=== PATIENT | female | born 1965 | race Caucasian/White ===

== ENCOUNTER 2020-08-26 17:01 | Outpatient (RCR) | payer OTHER, SELFPAY ==
--- NOTE | 2020-10-07 10:47 | PTOPEVAL ---
Thank you for referring Elysia Pope to [facility].? The patient is scheduled to be seen for therapy? ____x/week for ___ weeks. Please review, sign, date and return this plan of care OLIVER. I agree with and certify that the following plan of care is medically necessary. Referring Physician Date Admitting Provider: Attending Provider: Glynn Cullen MD Referring Provider: *PT Outpatient Evaluation Start: 08/26/20 17:06 Freq: Status: Active Protocol: Document 08/26/20 17:00 Lainey (Rec: 09/02/20 20:38 [facility] JONNATHAN-[id number]) Therapy Assessment Status Assessment Status Assessment Status Evaluation Outpatient Past Medical History Neurological History Hx Migraine Yes Cardiovascular History Hx Irregular Heartbeat Yes: PALPITATIONS/ ?SVT Respiratory History Hx Respiratory Disorders No Significant History Gastrointestinal History Hx Irritable Bowel Yes Genitourinary History Hx Genitourinary Disorders No Significant History Hematological History Hx Hematological Disorders No Significant History Endocrine History Hx Endocrine Disorders No Significant History HEENT History Hx HEENT Disorders No Significant History Integumentary History Hx Skin Disorders No Significant History Reproductive History Hx Reproductive Disorders No Significant History Psychosocial History Hx Psychiatric Disorders No Significant History Pain History Effective Methods of Pain Control PT TAKES IBUPROFEN FOR PETAR DANLOS SYNDROME Anesthesia History Hx Anesthesia Reactions No Significant History Evaluation Information Problem Diagnosis lumbar radiculopathy Onset 06/24/20 Additional Evaluation Detail oswestry = 54% Subjective Information patient reports she has been Query Text:As Reported By Patient/ having pain in the lower back Family and L hip/front of L thigh from about 7 weeks. she reports the pain has been about the same throughout this time. she reports no injury. she reports youth career specialist has not been helping. she reports symptoms are worse at night and radiate from the back to the L hip, down the front of the L thigh, and to the L knee. she reports no x- rays. she is on anti- inflamatory meds and was prescribed mm relaxors but is not taking. she reports she is
== END 2020-10-21 14:52 | disposition home or self-care (01) ==
LOC: CHSPT 17:01
PROVIDERS: PCP Internal Medicine; Visit Provider Internal Medicine
DX: M54.16 Radiculopathy, lumbar region (principal)
CPT/HCPCS: 97012; 97014; 97110; 97140; 97161; G0283

== ENCOUNTER 2020-10-07 02:28 | Outpatient (CLI) | payer OTHER, SELFPAY ==
[2020-10-07 22:41] LABS: SARS-CoV-2 RNA PCR Negative
== END 2020-10-07 02:29 | disposition home or self-care (01) ==
LOC: ANHCOVIDDT 02:29
PROVIDERS: PCP Internal Medicine; Visit Provider Internal Medicine Gastroenterology
DX: Z01.812 Encounter for preprocedural laboratory examination (principal); Z20.828 Contact with and (suspected) exposure to other viral communicable diseases
CPT/HCPCS: 87635; C9803; U0003

== ENCOUNTER 2020-10-10 00:35 | Day surgery (SDC) | payer OTHER, SELFPAY ==
[2020-10-03 15:33] VITALS: BMI 24.9
[2020-10-10 06:20] VITALS: BP 128/79; PULSE 103; RESP 16; TEMP 36.8; O2SAT 100; BMI 25.2
[2020-10-10] MEDS: LACTATED RINGERS 1,000 ML 150 ML IV CONT (06:32)
--- NOTE | 2020-10-10 07:00 | WPDANESEPPF ---
Anes - Initial Pre Proc Eval Procedure: Operation Date: 10/10/20 07:30 Proposed Procedures p Screening Colonoscopy - Shahram Bailey MD Date/Time: 10/10/20 07:00 Surgeon: Shahram Bailey MD Pre Op Diagnosis: Neoplasm Screening Patient Data Age: 55 Gender: F Height: 5 ft 6 in Weight: 70.9 kg Last Vital Signs Temp 36.8 C 10/10/20 06:20 Pulse 103 H 10/10/20 06:20 Resp 16 10/10/20 06:20 BP 128/79 10/10/20 06:20 Pulse Ox 100 10/10/20 06:20 Allergies Allergy/AdvReac Type Severity Reaction Status Date / Time metoclopramide [From Reglan] Allergy Severe Agitated Verified 10/10/20 06:19 diphenhydramine Allergy Intermediate Palpitation Verified 10/10/20 06:19 [From Benadryl] s erythromycin base Allergy Intermediate Rash Verified 10/10/20 06:19 iohexol Allergy Intermediate Rash Verified 10/10/20 06:19 [From CONTRAST - CT, XRAY] Sulfa (Sulfonamide Allergy Intermediate RASH Verified 10/10/20 06:19 Antibiotics) amoxicillin Allergy Mild Unknown Unverified 10/10/20 06:19 Home Medications Medication Instructions Recorded Confirmed Type fluticasone propionate [Flonase 1 spray INTRANASAL BID 08/27/19 10/10/20 History Allergy Relief] medroxyprogesterone 2.5 mg PO DAILY 08/31/19 10/10/20 History rizatriptan 10 mg PO PRN PRN 08/31/19 10/03/20 History acetaminophen [Acetaminophen Extra 1,000 mg PO DAILY PRN 10/03/20 10/10/20 History Strength] celecoxib 100 mg PO DAILY PRN 10/03/20 10/10/20 History cyclobenzaprine 10 mg PO HS PRN 10/03/20 10/10/20 History estradiol 0.5 mg PO DAILY 10/03/20 10/10/20 History ipratropium bromide 2 spray INTRANASAL TID PRN 10/03/20 10/03/20 History omeprazole 20 mg PO DAILY PRN 10/03/20 10/10/20 History Patient hx anesthesia problems: none Family hx anesthesia problems: none PMFSH Past Medical History Medical History Kerwin-Danlos syndrome IBS (irritable bowel syndrome) Irregular heart beat possible history of SVT Migraine Family History Family History Grandparent Family history of coronary artery disease, Onset Age: 88 Mother Family history of malignant neoplasm of breast in first degree relative, Onset Age: 73 Other Family history of malignant melanoma Family history of malignant neoplasm of breast Family history of malignant neoplasm of male breast Social History Social History Smoking packs per day: 1 Smoking cigarettes per day: 20.0 Years smoked: 10 Smoking pack-years: 10.00 Smoking status: Former smoker Tobacco type: cigarettes Smoking end date: 10/24/93 Alcohol intake: current Substance use: never Substance use type: does not use Living arrangements: with family Gender identity (if verbalized by the patient): Female Spiritual care concerns: No Anes - Eval Final PreProcedure Day of Procedure 10/10/20 07:00 Patient weight: normal Heart: regular rate and rhythm Lungs: clear to auscultation Airway: Mallampati scale class II Neurological: alert and oriented Last oral intake: >/= 8 hours ASA classification: III Emergent: no Anesthetic plan: proceed Anesthesia type and monitoring: general GIVS and standard monitoring Informed Consent: The patient's anesthetic plan and its attendant risks and benefits were discussed with the patient/family/POA. Questions were solicited and answers provided to the satisfaction of the patient/family/POA.
--- NOTE | 2020-10-10 07:25 | WPDGICN ---
Assessment and Plan Assessment and plan (1) Encounter for screening colonoscopy: Code(s): Z12.11 - Encounter for screening for malignant neoplasm of colon Status: Acute Assessment and Plan: Patient appears to be at average risk for colon polyps. Plan is for screening colonoscopy today. (2) Kerwin-Danlos syndrome: Code(s): Q79.60 - Kerwin-Danlos syndrome, unspecified Status: Acute GI Consult Note Consult date/time: 10/10/20 07:25 HPI: Elysia Pope is a 55 year old female Presents for screening colonoscopy. Her last exam was more than 10 years ago. Patient states that her current weight appetite bowel movements are normal. She denies abdominal pain. She has had no bleeding. Family history is noncontributory. [facility] Past Medical History Medical History (Updated 10/10/20 @ 07:26 by Shahram Bailey MD) Kerwin-Danlos syndrome IBS (irritable bowel syndrome) Irregular heart beat possible history of SVT Migraine Family History Family History Grandparent Family history of coronary artery disease, Onset Age: 88 Mother Family history of malignant neoplasm of breast in first degree relative, Onset Age: 73 Other Family history of malignant melanoma Family history of malignant neoplasm of breast Family history of malignant neoplasm of male breast Social History Social History Smoking packs per day: 1 Smoking cigarettes per day: 20.0 Years smoked: 10 Smoking pack-years: 10.00 Smoking status: Former smoker Tobacco type: cigarettes Smoking end date: 10/24/93 Alcohol intake: current Substance use: never Substance use type: does not use Living arrangements: with family Gender identity (if verbalized by the patient): Female Spiritual care concerns: No Meds Home Medications and Allergies Home Medications Medication Instructions Recorded Confirmed Type fluticasone propionate [Flonase 1 spray INTRANASAL BID 08/27/19 10/10/20 History Allergy Relief] medroxyprogesterone 2.5 mg PO DAILY 08/31/19 10/10/20 History rizatriptan 10 mg PO PRN PRN 08/31/19 10/03/20 History acetaminophen [Acetaminophen Extra 1,000 mg PO DAILY PRN 10/03/20 10/10/20 History Strength] celecoxib 100 mg PO DAILY PRN 10/03/20 10/10/20 History cyclobenzaprine 10 mg PO HS PRN 10/03/20 10/10/20 History estradiol 0.5 mg PO DAILY 10/03/20 10/10/20 History ipratropium bromide 2 spray INTRANASAL TID PRN 10/03/20 10/03/20 History omeprazole 20 mg PO DAILY PRN 10/03/20 10/10/20 History Allergies Allergy/AdvReac Type Severity Reaction Status Date / Time metoclopramide [From Reglan] Allergy Severe Agitated Verified 10/10/20 06:19 diphenhydramine Allergy Intermediate Palpitation Verified 10/10/20 06:19 [From Benadryl] s erythromycin base Allergy Intermediate Rash Verified 10/10/20 06:19 iohexol Allergy Intermediate Rash Verified 10/10/20 06:19 [From CONTRAST - CT, XRAY] Sulfa (Sulfonamide Allergy Intermediate RASH Verified 10/10/20 06:19 Antibiotics) amoxicillin Allergy Mild Unknown Unverified 10/10/20 06:19 Vital Signs Vital Signs - 24 hr 10/10/20 06:20 Temperature 98.3 F Pulse Rate 103 H Respiratory Rate 16 Blood Pressure 128/79 Pulse Oximetry 100 Exam Narrative: Exam Narrative: Physical exam reveals patient to be alert. Vital signs stable. HEENT exam unremarkable. Lungs are clear to auscultation and percussion. Heart is without murmur or extra sounds. Abdominal exam bowel sounds are present soft nontender with no hepatosplenomegaly. Digital external rectal exam is normal.
[2020-10-10 07:44] VITALS: BP 110/68; PULSE 89; RESP 23; O2SAT 100
[2020-10-10 07:54] VITALS: BP 118/78; PULSE 96; RESP 20; O2SAT 100
[2020-10-10 08:04] VITALS: BP 123/83; PULSE 80; RESP 16; O2SAT 100
== END 2020-10-10 08:30 | disposition home or self-care (01) ==
PROVIDERS: PCP Internal Medicine; Visit Provider Internal Medicine Gastroenterology
PROC: 0DJD8ZZ Inspection of Lower Intestinal Tract, Via Natural or Artificial Opening Endoscopic (ICD-10-PCS; CPT 45378; principal; 2020-10-10 07:30)
DX: Z12.11 Encounter for screening for malignant neoplasm of colon (principal); Q79.60 Ehlers-Danlos syndrome, unspecified; K58.9 Irritable bowel syndrome, unspecified; Z87.891 Personal history of nicotine dependence
CPT/HCPCS: 45378; J2704; J7120

== ENCOUNTER 2021-05-20 08:14 | Outpatient (CLI) | payer OTHER, SELFPAY ==
--- NOTE | ~2021-05-20 | MM_ITS ---
EXAMINATION: MM screening liane BI w joseph HISTORY: Screening mammogram TECHNIQUE: Craniocaudal and mediolateral oblique 3-D tomosynthesis images were obtained and synthetic 2-D images were generated. CAD analysis was submitted and interpreted. COMPARISON: 11/19/2019, 08/03/2018, 04/29/2017 bilateral digital screening mammogram examinations BREAST PARENCHYMAL COMPOSITION: There are scattered areas of fibroglandular density. . FINDINGS: Bilateral breast masses are noted, including up to 8 mm irregular mass (craniocaudal Tomosy nthesis image 41/84, MLO Tomosynthesis image 36/91) is noted in the posterior mid to upper outer left breast, additional smaller left breast masses, 5 mm posterior outer mid right breast irregular mass (MLO Tomosynthesis image 21/83). Bilateral diagnostic mammography and breast ultrasound examination are recommended. IMPRESSION: 1. Bilateral breast masses 2. Bilateral diagnostic mammography and breast ultrasound examination are recommended BI-RADS Category 0: Incomplete: Needs additional imaging evaluation. Reviewed, dictated and finalized at location A. IMPRESSION: 1. Bilateral breast masses 2. Bilateral diagnostic mammography and breast ultrasound examination are recom mended BI-RADS Category 0: Incomplete: Needs additional imaging evaluation.
== END 2021-05-20 08:15 | disposition home or self-care (01) ==
LOC: ANHIMG 08:17
PROVIDERS: PCP Internal Medicine; Visit Provider Nurse Practitioner
DX: Z12.31 Encounter for screening mammogram for malignant neoplasm of breast (principal); R92.8 Other abnormal and inconclusive findings on diagnostic imaging of breast
CPT/HCPCS: 77063; 77067

== ENCOUNTER 2021-07-09 13:22 | Outpatient (CLI) | payer OTHER, SELFPAY ==
--- NOTE | ~2021-07-09 | MMUS_ITS ---
EXAMINATION: MM diagnostic liane BI w joseph, US breast BI limited HISTORY: Follow-up breast asymmetries TECHNIQUE: Additional 3-D tomosynthesis images of the breasts were performed and synthetic 2-D images were generated. CAD analysis was submitted and interpreted. High resolution bilateral limited breast ultrasound was performed. COMPARISON: Comparison to multiple prior studies sequentially, with oldest reviewed study dated 02/11. BREAST PARENCHYMAL COMPOSITION: Breast composed of scattered areas of fibroglandular density. FINDINGS: MAMMOGRAPHIC FINDINGS: There is a focal mass in the upper outer quadrant of the left breast posteriorly with central lucency and slightly lobulated margins, most likely benign intramammary lymph node. No significant change co mpared with prior studies allowing for differences in. Focal asymmetry noted on the cc view on 016 No mammographic evidence for malignancy in the right breast. ULTRASOUND.: Limited bilateral breast ultrasound: Normal heterogeneous echotexture is identified bilaterally witho ut discrete mass. IMPRESSION: 1. Probable benign left breast mass, upper outer quadrant. No sonographic correlate. No evidence for malignancy in the right breast. 2. Recommend 6 month follow-up diagnostic left mammogram BI-RADS category 3, probably benign findings. Reviewed, dictated and finalized at location A. IMPRESSION: 1. Probable benign left breast mass, upper outer quadrant. No sonographic corre late. No evidence for malignancy in the right breast. 2. Recommend 6 month follow-up diagnostic left mammogram BI-RADS category 3, probably benign findings.
== END 2021-07-09 13:23 | disposition home or self-care (01) ==
PROVIDERS: PCP Internal Medicine; Visit Provider Obstetrics & Gynecology Gynecology
DX: N63.21 Unspecified lump in the left breast, upper outer quadrant (principal)
CPT/HCPCS: 76642; 77062; 77066; G0279

== ENCOUNTER → 2022-09-02 07:43 | Outpatient (CLI) | payer OTHER, SELFPAY ==
--- NOTE | ~2022-09-02 | US_ITS ---
EXAMINATION: US breast RT complete, US breast LT limited DATE: 09/02/2022 09:11 INDICATION: Probable benign left breast mass reported on 07/09/2021 bilateral diagnostic mammogram and Limited bilateral breast ultrasound examination TECHNIQUE: Real-time and color flow imaging of the complete right breast and upper outer and lower-ou ter quadrants of the left breast COMPARISON: 07/09/2021 bilateral diagnostic mammogram FINDINGS: RIGHT: 12:00 1 cm from nipple: Parallel circumscribed 1.7 x 3.2 3.4 mm hypoechoic lesion without suspicious shadowing, likely benign 7:00 6 cm from nipple: 5 x 5 x 5 x 6.4 mm sonolucency with through transmission and posterior enhance ment, likely a cyst LEFT: 3:00 8 cm from nipple: Circumscribed 4.5 x 4.1 x 5.2 mm hypoechoic lesion with fatty hilus, likely a small benign intramammary lymph node.. IMPRESSION: BI-RADS Category 2: Benign Recommendation: Routine annual mammographic screening . Reviewed, dictated and finalized at Location A. Reviewed, dictated and finalized at location A. D AMBASSADOR PROMOTIONAL MODEL IMPRESSION: BI-RADS Category 2: Benign Recommendation: Routine annual mammographic screening .
== END ==
PROVIDERS: PCP Internal Medicine; Visit Provider Obstetrics & Gynecology Gynecology
DX: R92.8 Other abnormal and inconclusive findings on diagnostic imaging of breast (principal)
CPT/HCPCS: 76641; 76642

== ENCOUNTER 2024-01-11 15:09 | Outpatient (CLI) | payer OTHER, SELFPAY ==
--- NOTE | ~2024-01-11 | MM_ITS ---
EXAMINATION: MM screening liane BI w joseph HISTORY: Screening TECHNIQUE: Craniocaudal and mediolateral oblique 3-D tomosynthesis images were obtained and synthetic 2-D images were generated. CAD analysis was submitted and interpreted. COMPARISON: Comparison to multiple prior studies sequentially, with oldest reviewed study dated 07/24. BREAST PARENCHYMAL COMPOSITION: Comparison to multiple prior studies sequentially, with oldest review ed study dated 08/03/2018. FINDINGS: There is a developing mass in the upper inner quadrant of the right breast, middle third. T he left breast is stable without evidence for malignancy. IMPRESSION: 1. Developing right breast mass, upper inner quadrant. 2. Additional mammographic views and possible breast ultrasound are recommended. BI-RADS Category 0: Incomplete: Needs additional imaging evaluation. Reviewed, dictated and finalized at location A. IMPRESSION: 1. Developing right breast mass, upper inner quadrant. 2. Additional mammographic views and possible breast ultrasound are recommended . BI-RADS Category 0: Incomplete: Needs additional imaging evaluation.
== END 2024-01-11 15:10 | disposition home or self-care (01) ==
PROVIDERS: PCP Internal Medicine; Visit Provider Nurse Practitioner
DX: Z12.31 Encounter for screening mammogram for malignant neoplasm of breast (principal); R92.8 Other abnormal and inconclusive findings on diagnostic imaging of breast
CPT/HCPCS: 77063; 77067

== ENCOUNTER 2024-01-20 08:14 | Outpatient (CLI) | payer OTHER, SELFPAY ==
--- NOTE | ~2024-01-20 | US_ITS ---
EXAMINATION: US breast RT limited HISTORY: Developing right breast mass reported in upper inner quadrant on 01/11/2024 screening mammogr am TECHNIQUE: Additional 3-D tomosynthesis images of the right breast were performed and synthetic 2-D i mages were generated. CAD analysis was submitted and interpreted. High resolution limited right breas t ultrasound was performed. COMPARISON: 01/11/2024 bilateral screening mammogram examinations 09/02/2022 complete right breast ultrasound examination FINDINGS: MAMMOGRAPHIC FINDINGS: Approximately 3.7 x 6.7 mm relatively circumscribed opacity is noted in the upper inner quadrant of t he right breast. ULTRASOUND: . Real-time imaging of the upper inner quadrant of the right breast reveals 2 contiguous cysts or a s rosendo septated cyst at 2:00 3 cm from the nipple, corresponding to the mammographic finding. This natasha sures up to approximately 4.4 mm maximal dimension overall. There is no internal vascularity. There i s no posterior shadowing. At 12:00 3 cm from the nipple there is a parallel oval circumscribed hypoechoic lesion measuring 1.7 x 3.7 mm, with no internal vascularity or posterior shadowing, benign in appearance. IMPRESSION: 1. Benign findings 2. Routine annual mammographic screening is recommended BI-RADS Category 2: Benign finding(s). Reviewed, dictated and finalized at location A.
--- NOTE | ~2024-01-20 | MM_ITS ---
EXAMINATION: MM diagnostic liane RT w joseph HISTORY: Developing right breast mass, upper inner quadrant reported on 01/11/2024 screening mammogram TECHNIQUE: Additional 3-D tomosynthesis images of the right breast were performed and synthetic 2-D i mages were generated. CAD analysis was submitted and interpreted. COMPARISON: [facility] bilat. screening mammogram FINDINGS: Approximately 3.8 x 6.8 mm mass with lobular outline is noted at mid depth in the upper inn er quadrant of the right breast. Diagnostic right mammogram and targeted ultrasound examination are r ecommended for further evaluation. IMPRESSION: 1. 3.8 x 6.8 mm upper inner quadrant right breast mass 2. Diagnostic right mammogram and right breast ultrasound examination are recommended BI-RADS Category 0: Incomplete: Needs additional imaging evaluation. Reviewed, dictated and finalized at location A. IMPRESSION: 1. 3.8 x 6.8 mm upper inner quadrant right breast mass 2. Diagnostic right mammogram and right breast ultrasound examination are recom mended BI-RADS Category 0: Incomplete: Needs additional imaging evaluation.
== END 2024-01-20 08:15 ==
LOC: MICIMG 08:15
PROVIDERS: PCP Internal Medicine; Visit Provider Obstetrics & Gynecology Gynecology
DX: R92.8 Other abnormal and inconclusive findings on diagnostic imaging of breast (principal); N63.12 Unspecified lump in the right breast, upper inner quadrant
CPT/HCPCS: 76642; 77061; 77065; G0279

== ENCOUNTER 2025-01-12 07:32 | Outpatient (CLI) | payer OTHER, SELFPAY ==
--- NOTE | ~2025-01-12 | MM_ITS ---
EXAMINATION: MM screening liane BI w joseph HISTORY: Screening. 59-year-old woman with a maternal family history of breast cancer (diagnosed post menopausal) presents for screening bilateral mammography. TECHNIQUE: Craniocaudal and mediolateral oblique 3-D tomosynthesis images were obtained and synthetic 2-D images were generated. CAD analysis was submitted and interpreted. COMPARISON: 01/20/2024 and dating back to 11/19/2019 BREAST PARENCHYMAL COMPOSITION: Not dense: There are scattered areas of fibroglandular density. FINDINGS: Punctate calcifications are detected bilaterally, stable and benign in appearance. Stable parenchymal pattern without suspicious microcalcifications, architectural distortion, discrete masses or significant asymmetry. IMPRESSION: 1. No mammographic evidence of malignancy. 2. Recommend routine screening mammography in one year. BI-RADS Category 2: Benign finding(s). Reviewed, dictated and finalized at location A.
--- OUTSIDE RECORDS SUMMARY | 2025-01-12 07:38 | XMS_ITS | Clinical Summary ---
Author Organization [facility] [address] [employer] [employer] Address [address] [place] [address] Care Team Providers Care Parking Patroller Name Role Phone Glynn Cullen MD Primary Care Provider Allergies Active Allergy Reactions Criticality Noted Date Comments Adhesive Tape-Silicones Iodinated Contrast Media Sulfa (Sulfonamide Antibiotics) Medications estradioL (ESTRACE) 0.5 mg tablet Take 0.5 mg by mouth daily 1 Active ipratropium (ATROVENT) 42 mcg (0.06 %) nasal spray Administer into each nostril 3 (three) times a day 1 Active medroxyPROGESTE Liban (PROVERA) 2.5 mg tablet Take 2.5 mg by mouth daily 1 Active rizatriptan (MAXALT) 10 mg tabletIndicatio ns:Migraine Take 10 mg by mouth once as needed for migraine May repeat in 2 hours if unresolved. Do not exceed 30 mg in 24 hours. Active sodium chloride (OCEAN) 0.65 % nasal spray Administer 1 spray into each nostril as needed Active acetaminophen (TYLENOL) 500 mg tablet Take 500 mg by mouth every 6 (six) hours as needed for pain Active fluticasone propionate (FLONASE) 50 mcg/actuation nasal spray Administer 1 spray into each nostril daily Active celecoxib (CeleBREX) 200 mg capsule Take by mouth daily 3 Active losartan-hydroC HLOROthiazide (HYZAAR) 50-12.5 mg per tablet Take 1 tablet by mouth daily 3 Active Active Problems Problem Noted Date Diagnosed Date Sensorineural hearing loss ( SNHL) of left ear with restricted hearing of right ear 03/25/2021 Tinnitus of left ear 03/25/2021 Melanoma in situ of trunk 03/30/2016 Surgical History Surgery Date Site/Laterality Comments BREAST BIOPSY MOHS SURGERY ULNAR NERVE REPAIR Medical History Medical History Date Comments Allergic rhinitis Anxiety Melanoma (HCC) SVT (supraventricular tachycardia) Family History Medical History Relation Name Comments Basal cell carcinoma Mother Family history of basal cell carcinoma - (Added by TW Conv) Melanoma Other Melanoma - (Add ed by TW Conv) Melanoma Sister Melanoma - (Add ed by TW Conv) Relation Name Status Comments Mother Other Sister Social History Tobacco Use Types Packs/Day Years Used Date Smoking Tobacco: Former Cigarettes Q uit: 1996 Smokeless Tobacco: Never Personal Safety Answer Date Recorded Getting School Help Needed Not on file 01/06 Comments Unknown Sex and Gender Information Value Date Recorded Sex Assigned at Not on file 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 Gender Identity Not on file Sexual Orientation Not on file Obstetrics History Last Filed Vital Signs Vital Sign Reading Time Taken Comments Blood Pressure - - Pulse - - Temperature - - Respiratory Rate 17 06/09/2021 9:08 AM CDT Oxygen Saturation - - Inhaled Oxygen Concentration - - Weight 72.6 kg (160 lb) 06/09/2021 9:08 AM CDT Height 167.6 cm (5' 6 ) 06/09/2021 9:08 AM CDT Body Mass Index 25.82 06/09/2021 9:08 AM CDT Plan of Treatment Health Maintenance Due Date Last Done Comments Breast Cancer Screening-Mammogram 1966 Cervical Cancer Screening 1966 Colon Cancer Screening-Colonoscopy 1966 Depression Screening 1966 Hepatitis C Screening 1966 DTaP/Tdap/Td Vaccine (1 - Tdap) 1977 Hepatitis B Screening 1984 Regular Well Visit/Exam 18-64 1984 Zoster Vaccine (1 of 2) 2016 Influenza Vaccine (#1) 2024 Pneumococcal vaccine <65 Aged Out No longer eligible based on patient's age to complete this topic Insurance [employer] Care Teams Parking Patroller Relationship Specialty Start Date End Date Glynn Cullen MD [address] [place] [address] PCP - General Internal Medicine 03/18/21
--- OUTSIDE RECORDS SUMMARY | 2025-01-12 07:38 | XMS_ITS | Referral Summary ---
Author Organization [facility] 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
--- OUTSIDE RECORDS SUMMARY | 2025-01-12 07:38 | XMS_ITS | Clinical Summary ---
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 Gender Identity Not on file Sexual Orientation Not on file Plan of Treatment Health Maintenance Due Date Last Done Comments Cervical Cancer Screening Pa p Smear (Age 30 to 64) Every 3 Years 1966 Colorectal Cancer Screening Colonoscopy (10 Years) 1966 Annual Physical 1969 Hepatitis C 1984 DTaP, Tdap and Td Vaccines ( 1 - Tdap) 1985 Hepatitis B Vaccines (1 of 3 - 19+ 3-dose series) 1985 Cervical Cancer Screening Pa p with HPV Testing (Age 30 to 64) Every 5 Years 1996 Cervical Cancer Screening with HPV 1996 Mammogram Screening 2006 Zoster Vaccines (1 of 2) 2016 COVID-19 Vaccine (2023-2 5 season) 2024 Influenza Adult (#1) 2024 Meningococcal B Vaccine Aged Out No l onger eligible based on patient's age to complete this topic Meningococcal Vaccine Aged Out No adela alise eligible based on patient's age to complete this topic Pneumococcal Vaccine: Pediat rics (0 to 5 Years) and At-Risk Patients (6 to 64 Years) Aged Out No longer eligible b ased on patient's age to complete this topic RSV Immunizations Under 20 Months Aged Out No longer eligible based on patient's age to complete this topic
== END 2025-01-12 07:33 | disposition home or self-care (01) ==
LOC: ANHIMG 07:36
PROVIDERS: PCP Internal Medicine; Visit Provider Nurse Practitioner
DX: Z12.31 Encounter for screening mammogram for malignant neoplasm of breast (principal); Z80.3 Family history of malignant neoplasm of breast
CPT/HCPCS: 77063; 77067

== ENCOUNTER 2025-08-27 07:46 | Outpatient (CLI) | payer OTHER, SELFPAY ==
--- NOTE | ~2025-08-27 | DEXA_ITS ---
Bone Density Report Name: WILI WOMACK Age: 60 Sex: Female Ethnicity: White Date of : 1965 Indication: postmenopausal; screening for osteoporosis; parental hip fracture; inflammatory bowel disease; Referring Provider: HOLLI, DEANGELO Study: Bone densitometry was performed. Exam Date: August 27, 2025 Accession number: [id number] Bone Density: Region BMD T-score Z-score Classification AP Spine(L1-L4) 1.055 0.1 1.4 Normal Femoral Neck (Left) 0.696 -1.4 -0.1 Osteopenia Total Hip (Left) 0.855 -0.7 0.2 Normal Femoral Neck (Right) 0.794 -0.5 0.7 Normal Total Hip (Right) 0.879 -0.5 0.4 Normal Total Hip Mean 0.867 -0.6 0.3 Normal World Health Organization criteria for BMD impression classify patients as: Normal (T-score at or above -1.0), Osteopenia (T-score between -1.0 and -2.5), or Osteoporosis (T-score at or below -2.5). 10-year Fracture Risk(1): Major Osteoporotic Fracture 15% Hip Fracture 0.5% Reported Risk Factors: [place] (), Neck BMD=0.696, BMI=26.0, parental fracture (1) FRAX(R) Version 3.08. Fracture probability calculated for an untreated patient. Fracture probability may be lower if the patient has received treatment. Clinical Information Provided by Patient: Parent has had a hip fracture Has used the following medications: HRT (i.e. estrogen/hormone therapy) Has the following medical conditions: Inflammatory bowel diseases Patient maximum height was 66.5 Menopause Age: 48 No regular weight bearing exercise Drinks caffeinated beverages Onset of menses at age 14 Number of children 3 Missed period for more than 6 months in a row Impression: The patient has low bone mass, based on the Left Femoral Neck T-score. The patient has an estimated ten-year risk of hip fracture of 0.5% and an estimated ten-year risk of major fracture of 15%, based on the WHO FRAX algorithm. The patient has risk factors, including: parental hip fracture. Discussion: BONE DENSITY IS LOW AT ONE OR MORE SKELETAL SITES. This patient's lowest T-score is low at one or more skeletal sites. It meets the World Health Organization's (WHO) criteria for ?low bone mass? (T-score between -1.0 and -2.5). The patient's 10-year risk of fracture as calculated by FRAX is less than the threshold where pharmacological therapy is recommended by the National Osteoporosis Foundation (NOF). However, all treatment decisions require clinical judgment and consideration of individual patient factors, including patient preferences, comorbidities, previous drug use, risk factors not captured in the FRAX model (e.g., frailty, falls, vitamin D deficiency, increased bone turnover, interval significant decline in bone density) and possible under or overestimation of fracture risk by FRAX. The patient should follow a healthful lifestyle (good nutrition with adequate calcium and vitamin D, and appropriate weight-bearing exercise). Follow-Up: Consider repeating this study in 2 to 3 years to reassess this patient's status, or sooner if there is some new clinical indication. Reported by: BUD on 08/27/2025 8:09:00 AM. Reviewed, dictated and finalized at location A.
== END 2025-08-27 07:47 | disposition home or self-care (01) ==
LOC: MICIMG 07:47
PROVIDERS: PCP Internal Medicine; Visit Provider Nurse Practitioner
DX: M85.89 Other specified disorders of bone density and structure, multiple sites (principal); Z78.0 Asymptomatic menopausal state; Z13.820 Encounter for screening for osteoporosis
CPT/HCPCS: 77080